=== PATIENT | male | born 1960 | race African-American/Black ===

== ENCOUNTER 2016-06-16 10:58 | Inpatient (IN) | payer OTHER ==
[~2016-06-16] VITALS: Ht 172.7 cm; Wt 105.6 kg
[2016-06-16] VITALS (18 sets, daily range): BP systolic 80–147; BP diastolic 56–104
[~2016-06-16 10:58] MED LIST: AMBIEN10 MG PO; AMBIEN5 MG PO; AMLODIPINE BESYL5 MG PO; BACTRIM,SEPT1 TABLET PO; CEPHALEXIN500 MG PO; DESCOVY 200-251 EACH PO; DOCUSATE SODIU100 MG PO; FEOSOL325 MG PO; FLEXERIL10 MG PO; KEFLEX500 MG PO; LEVAQUIN750 MG PO; METFORMIN HCL500 MG PO; MOTRIN800 MG PO; NAPROSYN500 MG PO; NORVIR100 M1 PO; PERCOCET 5/31 TABLET PO; PREDNISONE10 MG PO; PREDNISONE20 MG PO; PREZCOBIX 8001 EACH PO; PREZISTA800 MG PO; RISPERIDONE0.5 MG PO; SERTRALINE HCL100 MG PO; TORADOL10 MG PO; TRUVADA1 TABLET PO; UNABLEOBTAIN; VALIUM5 MG PO; VENTOLIN HFA18 GM IH; ZOLOFT100 MG PO
[2016-06-16 11:32] LABS: CREATININE 1.5 mg/dL (0.6-1.3); POTASSIUM 3.7 mEq/L (3.7-5.4)
[2016-06-16 11:34] LABS: HEMATOCRIT 38.6 % (38.0-50.0); MCH 25.4 PG (29.0-34.0); MCHC 30.8 G/DL (30.0-36.0); MCV 82.3 FL (86-99); MEAN PLAT.VOLUME 10.4 uM^3 (9.0-12.4); PLATELET COUNT 316 K/uL (156-360); RBC DIS.WIDTH-CV 14.6 % (11.8-14.6); RBC DIS.WIDTH-SD 43.2 % (39-53); RED BLOOD COUNT 4.69 M/uL (4.00-5.50); WHITE BLOOD COUNT 8.9 K/uL (4.1-10.2)
[2016-06-16 11:44] LABS: CHLORIDE 105 mEq/L (99-109); POTASSIUM 3.8 mEq/L (3.7-5.4); SODIUM 141 mEq/L (136-147)
[2016-06-16 11:47] LABS: GLUCOSE 294 mg/dL (70-99)
[2016-06-16 11:48] LABS: ANION GAP 18 MEQ/L (2-14)
[2016-06-16 11:49] LABS: TOTAL BILIRUBIN 0.2 mg/dL (0.0-1.0)
[2016-06-16 11:50] LABS: SERUM ETHYL ALCOHOL < 10 mg/dL
[2016-06-16 11:51] LABS: ALKALINE PHOSPHATASE 65 IU/L (3-129); GFR ESTIMATE (CALCULATED) 51 mL/min/
[2016-06-16 11:52] LABS: UREA NITROGEN (BUN) 16 mg/dL (9-23)
[2016-06-16 11:54] LABS: BASE EXCESS -1.7 mEq/L (-3 to +3); CARBOXY HGB 1.7 % (0-5); METHEMOGLOBIN 0.6 % (0-1.5)
[2016-06-16 11:54] LABS: SALICYLATE < 5.0 MG/DL (15-30); TROP-I INTERPRETATION NEGATIVE; TROPONIN-I 0.01 ng/mL (0.0-0.30)
[2016-06-16 11:55] LABS: DEVICE 840; FI02 100 %; MECHANICAL RATE 16 resp/min; MODE AC; PCO2 58 mm Hg (35-45); PO2 143 mm Hg (80-100); SITE LR; TOTAL RESP RATE 16 resp/min; pH 7.26 (7.35-7.45)
[2016-06-16 11:56] LABS: COMMENTS - BLOOD GASES A+C+; PEEP 5 CM/H20; TIDAL VOLUME 500 ML
[2016-06-16 12:57] LABS: AMPHETAMINE NEGATIVE (500 ng/mL); BARBITURATES NEGATIVE (200 ng/mL); BENZODIAZEPINES NEGATIVE (150 ng/mL); COCAINE PRESUMPTIVE POSITIVE (150 ng/mL); INTERNAL CONTROLS VALID? YES; METHADONE NEGATIVE (200 ng/mL); METHAMPHETAMINE NEGATIVE (500 ng/mL); OPIATES (MORPHINE) PRESUMPTIVE POSITIVE (100 ng/mL); OXYCODONE NEGATIVE (100 ng/mL); PHENCYCLIDINE NEGATIVE (25 ng/mL); PROPOXYPHENE NEGATIVE (300 ng/mL); THC CANNABINOIDS NEGATIVE (50 ng/mL); TRICYCLIC ANTIDEPRESSANTS NEGATIVE (300 ng/mL)
[2016-06-16 12:58] LABS: ADD MEDTOX COMMENT Y
[2016-06-16 17:48] LABS: METH RESISTANT S AUREUS PCR NEGATIVE (NEGATIVE)
[2016-06-16 17:53] LABS: PROBE CHECK PASS; SPECIMEN PROCESSING CONTROL PASS
[2016-06-16 19:07] LABS: MAGNESIUM 2.2 mg/dL (1.3-2.7)
[2016-06-16] MEDS ORDERED: PROAIR HFA8.5 GM IH (19:34)
[2016-06-16] MEDS ORDERED: DESCOVY 200-251 EACH PO (19:34)
[2016-06-16] MEDS ORDERED: PREZCOBIX 8001 EACH PO (19:34)
[2016-06-16] MEDS ORDERED: NORVASC5 MG PO (19:35)
[2016-06-16] MEDS ORDERED: GLUCOPHAGE500 MG PO (19:35)
[2016-06-16] MEDS ORDERED: MOTRIN800 MG PO (19:36)
[2016-06-16] MEDS ORDERED: FLEXERIL10 MG PO (19:36)
[2016-06-16 21:46] LABS: BASE EXCESS 0.8 mEq/L (-3 to +3); BICARBONATE 25.3 mEq/L (22-26); CARBOXY HGB 1.6 % (0-5); COMMENTS - BLOOD GASES C+A+; DEVICE VENTILATOR; FI02 40 %; MECHANICAL RATE 22 resp/min; METHEMOGLOBIN 1.7 % (0-1.5); MODE AC; PCO2 39 mm Hg (35-45); PO2 60 mm Hg (80-100); SITE RR; TOTAL RESP RATE 22 resp/min; pH 7.42 (7.35-7.45)
[2016-06-16 21:47] LABS: PEEP 5 CM/H20; TIDAL VOLUME 500 ML
[2016-06-17] VITALS (24 sets, daily range): BP systolic 78–151; BP diastolic 50–88
[2016-06-17 01:01] LABS: CREATINE KINASE 222 IU/L (1-294); TOTAL CK 222 IU/L (1-294)
[2016-06-17 01:08] LABS: CK-MB 1.8 ng/mL (0.0-4.9)
[2016-06-17 03:50] LABS: UR CREATININE CONCENTRATION 201.5 MG/DL
[2016-06-17 05:54] LABS: EOSINOPHIL (%) 0.1 % (0-5); HEMATOCRIT 33.1 % (38.0-50.0); IMMATURE GRANULOCYTE (%) 0.3 % (0.0-0.7); IMMATURE GRANULOCYTE COUNT 0.1 K/uL; LYMPHOCYTE COUNT 1.7 K/uL (1.0-2.8); MCH 25.6 PG (29.0-34.0); MCHC 30.8 G/DL (30.0-36.0); MEAN PLAT.VOLUME 10.8 uM^3 (9.0-12.4); MONOCYTE (%) 4.3 % (3-12); NEUTROPHIL (%) 87.6 % (45-76); NEUTROPHIL COUNT 19.5 K/uL (1.8-6.4); PLATELET COUNT 241 K/uL (156-360); RBC DIS.WIDTH-CV 14.9 % (11.8-14.6); RBC DIS.WIDTH-SD 45.5 % (39-53); RED BLOOD COUNT 3.99 M/uL (4.00-5.50)
[2016-06-17 05:55] LABS: WHITE BLOOD COUNT 22.3 K/uL (4.1-10.2)
[2016-06-17 06:22] LABS: ANION GAP 12 MEQ/L (2-14); CHLORIDE 105 MEQ/L (99-109); GFR ESTIMATE (CALCULATED) 40 mL/min/; MAGNESIUM 1.6 mg/dl (1.3-2.7); SAMPLE HEMOLYSIS CHECK 0; SAMPLE ICTERIC CHECK 0; SAMPLE LIPEMIA CHECK 0; SODIUM 140 MEQ/L (136-147); UREA NITROGEN (BUN) 20 mg/dL (9-23)
[2016-06-17 06:46] LABS: GLUCOSE 136 mg/dL (70-99)
[2016-06-17 07:33] LABS: CREATINE KINASE 160 IU/L (1-294); TOTAL CK 160 IU/L (1-294)
[2016-06-17 07:35] LABS: CK-MB 1.9 ng/mL (0.0-4.9)
[2016-06-17 13:04] LABS: CREATINE KINASE 235 IU/L (1-294); TOTAL CK 235 IU/L (1-294)
[2016-06-17 13:09] LABS: CK-MB 2.3 ng/mL (0.0-4.9)
[2016-06-17 18:12] LABS: POINT-OF-CARE METER ID UU14162636
[2016-06-17 18:42] LABS: CREATINE KINASE 362 IU/L (1-294); TOTAL CK 362 IU/L (1-294)
[2016-06-17 18:59] LABS: CK-MB 1.8 ng/mL (0.0-4.9)
[2016-06-18] VITALS (24 sets, daily range): BP systolic 87–157; BP diastolic 56–98
[2016-06-18 00:28] LABS: POINT-OF-CARE METER ID UU14174217
[2016-06-18 05:39] LABS: POINT-OF-CARE METER ID UU13113748
[2016-06-18 06:08] LABS: ANION GAP 10 MEQ/L (2-14); CHLORIDE 112 MEQ/L (99-109); GFR ESTIMATE (CALCULATED) 48 mL/min/; GLUCOSE 125 mg/dL (70-99); POTASSIUM 3.7 MEQ/L (3.7-5.4); SAMPLE HEMOLYSIS CHECK 0; SAMPLE ICTERIC CHECK 0; SAMPLE LIPEMIA CHECK 0; SODIUM 144 MEQ/L (136-147); UREA NITROGEN (BUN) 19 mg/dL (9-23)
[2016-06-18 06:10] LABS: MAGNESIUM 2.2 mg/dl (1.3-2.7)
[2016-06-18 06:15] LABS: EOSINOPHIL (%) 0.6 % (0-5); EOSINOPHIL COUNT 0.1 K/uL (0-0.3); HEMATOCRIT 29.6 % (38.0-50.0); IMMATURE GRANULOCYTE (%) 0.2 % (0.0-0.7); LYMPHOCYTE COUNT 1.5 K/uL (1.0-2.8); MCH 25.1 PG (29.0-34.0); MCHC 30.4 G/DL (30.0-36.0); MCV 82.5 FL (86-99); MEAN PLAT.VOLUME 10.3 uM^3 (9.0-12.4); MONOCYTE (%) 4.6 % (3-12); MONOCYTE COUNT 0.6 K/uL (0-0.8); NEUTROPHIL (%) 82.5 % (45-76); NEUTROPHIL COUNT 10.3 K/uL (1.8-6.4); PLATELET COUNT 207 K/uL (156-360); RBC DIS.WIDTH-CV 15.4 % (11.8-14.6); RBC DIS.WIDTH-SD 47.1 % (39-53); RED BLOOD COUNT 3.59 M/uL (4.00-5.50)
[2016-06-18 06:20] LABS: WHITE BLOOD COUNT 12.5 K/uL (4.1-10.2)
[2016-06-18 11:48] LABS: POINT-OF-CARE METER ID UU13113748
[2016-06-18 18:04] LABS: POINT-OF-CARE METER ID UU13113748
[2016-06-18 23:56] LABS: POINT-OF-CARE METER ID UU13113748
[2016-06-19] VITALS (10 sets, daily range): BP systolic 92–146; BP diastolic 59–94
[2016-06-19 05:28] LABS: EOSINOPHIL (%) 0 % (0-5); HEMATOCRIT 32.6 % (38.0-50.0); IMMATURE GRANULOCYTE (%) 0.3 % (0.0-0.7); IMMATURE GRANULOCYTE COUNT 0.1 K/uL; LYMPHOCYTE COUNT 0.9 K/uL (1.0-2.8); MCHC 31.3 G/DL (30.0-36.0); MEAN PLAT.VOLUME 10.7 uM^3 (9.0-12.4); MONOCYTE (%) 4.8 % (3-12); MONOCYTE COUNT 0.7 K/uL (0-0.8); NEUTROPHIL (%) 88.5 % (45-76); NEUTROPHIL COUNT 12.8 K/uL (1.8-6.4); PLATELET COUNT 210 K/uL (156-360); RBC DIS.WIDTH-CV 15.1 % (11.8-14.6); RBC DIS.WIDTH-SD 45.9 % (39-53); RED BLOOD COUNT 3.93 M/uL (4.00-5.50); WHITE BLOOD COUNT 14.5 K/uL (4.1-10.2)
[2016-06-19 05:59] LABS: ANION GAP 10 MEQ/L (2-14); CHLORIDE 104 MEQ/L (99-109); GFR ESTIMATE (CALCULATED) > 59 mL/min/; POTASSIUM 3.8 MEQ/L (3.7-5.4); SAMPLE HEMOLYSIS CHECK 0; SAMPLE ICTERIC CHECK 0; SAMPLE LIPEMIA CHECK 0; SODIUM 138 MEQ/L (136-147); UREA NITROGEN (BUN) 17 mg/dL (9-23)
[2016-06-19 06:03] LABS: GLUCOSE 213 mg/dL (70-99)
[2016-06-19 09:04] LABS: POINT-OF-CARE METER ID UU13113731
[2016-06-19 12:41] LABS: POINT-OF-CARE METER ID UU13113731
[2016-06-19 17:35] LABS: POINT-OF-CARE METER ID UU13113717
[2016-06-19 21:34] LABS: POINT-OF-CARE METER ID UU13113717
[2016-06-20 00:03] VITALS: BP 131/77
[2016-06-20 06:33] LABS: EOSINOPHIL (%) 0 % (0-5); HEMATOCRIT 30.3 % (38.0-50.0); IMMATURE GRANULOCYTE (%) 0.4 % (0.0-0.7); IMMATURE GRANULOCYTE COUNT 0.1 K/uL; LYMPHOCYTE COUNT 1.2 K/uL (1.0-2.8); MCH 25.4 PG (29.0-34.0); MCHC 30.7 G/DL (30.0-36.0); MCV 82.8 FL (86-99); MEAN PLAT.VOLUME 10.8 uM^3 (9.0-12.4); NEUTROPHIL COUNT 18.2 K/uL (1.8-6.4); PLATELET COUNT 229 K/uL (156-360); RBC DIS.WIDTH-SD 45.2 % (39-53); RED BLOOD COUNT 3.66 M/uL (4.00-5.50)
[2016-06-20 06:35] LABS: WHITE BLOOD COUNT 20.5 K/uL (4.1-10.2)
[2016-06-20 06:44] LABS: ANION GAP 8 MEQ/L (2-14); CHLORIDE 108 MEQ/L (99-109); GFR ESTIMATE (CALCULATED) 58 mL/min/; GLUCOSE 158 mg/dL (70-99); MAGNESIUM 1.8 mg/dl (1.3-2.7); POTASSIUM 4.4 MEQ/L (3.7-5.4); SAMPLE HEMOLYSIS CHECK 0; SAMPLE ICTERIC CHECK 0; SAMPLE LIPEMIA CHECK 0; SODIUM 141 MEQ/L (136-147)
[2016-06-20 06:48] LABS: UREA NITROGEN (BUN) 26 mg/dL (9-23)
[2016-06-20 08:49] VITALS: BP 129/72
[2016-06-20 11:14] LABS: POINT-OF-CARE METER ID UU13113717
[2016-06-20 15:37] VITALS: BP 129/79
[2016-06-20 23:58] VITALS: BP 130/82
[2016-06-21 06:38] LABS: POINT-OF-CARE METER ID UU13113725
[2016-06-21 08:09] LABS: EOSINOPHIL (%) 0.5 % (0-5); HEMATOCRIT 32.1 % (38.0-50.0); IMMATURE GRANULOCYTE (%) 0.2 % (0.0-0.7); LYMPHOCYTE COUNT 2.1 K/uL (1.0-2.8); MCH 25.5 PG (29.0-34.0); MCHC 30.5 G/DL (30.0-36.0); MCV 83.4 FL (86-99); MEAN PLAT.VOLUME 10.7 uM^3 (9.0-12.4); MONOCYTE (%) 9.4 % (3-12); MONOCYTE COUNT 0.8 K/uL (0-0.8); NEUTROPHIL (%) 64.6 % (45-76); NEUTROPHIL COUNT 5.4 K/uL (1.8-6.4); PLATELET COUNT 231 K/uL (156-360); RBC DIS.WIDTH-CV 15.5 % (11.8-14.6); RBC DIS.WIDTH-SD 47.1 % (39-53); RED BLOOD COUNT 3.85 M/uL (4.00-5.50); WHITE BLOOD COUNT 8.4 K/uL (4.1-10.2)
[2016-06-21 08:14] VITALS: BP 132/88
[2016-06-21 08:36] LABS: ANION GAP 9 MEQ/L (2-14); CHLORIDE 108 MEQ/L (99-109); GFR ESTIMATE (CALCULATED) > 59 mL/min/; GLUCOSE 108 mg/dL (70-99); MAGNESIUM 1.5 mg/dl (1.3-2.7); SAMPLE HEMOLYSIS CHECK 0; SAMPLE ICTERIC CHECK 0; SAMPLE LIPEMIA CHECK 0; SODIUM 142 MEQ/L (136-147); UREA NITROGEN (BUN) 19 mg/dL (9-23)
[2016-06-21 11:58] LABS: POINT-OF-CARE METER ID UU13113725
[2016-06-21 14:58] VITALS: BP 133/86
[2016-06-21 16:48] LABS: POINT-OF-CARE METER ID UU13113725
[2016-06-21 23:18] VITALS: BP 134/83
[2016-06-22 06:18] LABS: POINT-OF-CARE METER ID UU13113717
[2016-06-22 06:55] LABS: EOSINOPHIL (%) 1.8 % (0-5); EOSINOPHIL COUNT 0.1 K/uL (0-0.3); HEMATOCRIT 31.4 % (38.0-50.0); IMMATURE GRANULOCYTE (%) 0.1 % (0.0-0.7); LYMPHOCYTE COUNT 2.3 K/uL (1.0-2.8); MCH 25.7 PG (29.0-34.0); MCHC 31.2 G/DL (30.0-36.0); MCV 82.2 FL (86-99); MEAN PLAT.VOLUME 10.7 uM^3 (9.0-12.4); MONOCYTE (%) 7.6 % (3-12); MONOCYTE COUNT 0.6 K/uL (0-0.8); NEUTROPHIL (%) 59.1 % (45-76); NEUTROPHIL COUNT 4.4 K/uL (1.8-6.4); PLATELET COUNT 234 K/uL (156-360); RBC DIS.WIDTH-CV 15.4 % (11.8-14.6); RBC DIS.WIDTH-SD 45.9 % (39-53); RED BLOOD COUNT 3.82 M/uL (4.00-5.50); WHITE BLOOD COUNT 7.4 K/uL (4.1-10.2)
[2016-06-22 07:21] LABS: ANION GAP 9 MEQ/L (2-14); CHLORIDE 103 MEQ/L (99-109); GFR ESTIMATE (CALCULATED) > 59 mL/min/; GLUCOSE 138 mg/dL (70-99); MAGNESIUM 1.4 mg/dl (1.3-2.7); SAMPLE HEMOLYSIS CHECK 0; SAMPLE ICTERIC CHECK 0; SAMPLE LIPEMIA CHECK 0; SODIUM 139 MEQ/L (136-147); UREA NITROGEN (BUN) 18 mg/dL (9-23)
[2016-06-22 08:40] VITALS: BP 135/86
[2016-06-22 16:00] VITALS: BP 124/83
[2016-06-22 16:08] LABS: POINT-OF-CARE METER ID UU13113717
[2016-06-22 22:53] VITALS: BP 126/79
[2016-06-23 06:13] LABS: EOSINOPHIL (%) 0 % (0-5); HEMATOCRIT 32.5 % (38.0-50.0); IMMATURE GRANULOCYTE (%) 0.3 % (0.0-0.7); LYMPHOCYTE COUNT 1.6 K/uL (1.0-2.8); MCH 25.6 PG (29.0-34.0); MCHC 31.7 G/DL (30.0-36.0); MCV 80.8 FL (86-99); MEAN PLAT.VOLUME 10.7 uM^3 (9.0-12.4); MONOCYTE COUNT 0.7 K/uL (0-0.8); NEUTROPHIL (%) 79.8 % (45-76); NEUTROPHIL COUNT 9.4 K/uL (1.8-6.4); PLATELET COUNT 268 K/uL (156-360); RBC DIS.WIDTH-CV 14.9 % (11.8-14.6); RBC DIS.WIDTH-SD 44.1 % (39-53); RED BLOOD COUNT 4.02 M/uL (4.00-5.50); WHITE BLOOD COUNT 11.7 K/uL (4.1-10.2)
[2016-06-23 06:39] LABS: ANION GAP 11 MEQ/L (2-14); CHLORIDE 100 MEQ/L (99-109); GFR ESTIMATE (CALCULATED) > 59 mL/min/; GLUCOSE 206 mg/dL (70-99); MAGNESIUM 1.6 mg/dl (1.3-2.7); POTASSIUM 4.3 MEQ/L (3.7-5.4); SAMPLE HEMOLYSIS CHECK 0; SAMPLE ICTERIC CHECK 0; SAMPLE LIPEMIA CHECK 0; SODIUM 137 MEQ/L (136-147); UREA NITROGEN (BUN) 18 mg/dL (9-23)
[2016-06-23 08:45] VITALS: BP 129/89
[2016-06-23 12:07] LABS: POINT-OF-CARE METER ID UU13113717
[2016-06-23] MEDS ORDERED: AMOX TR-K CLV1 EAC4 PO (12:10)
[2016-06-23 16:36] LABS: POINT-OF-CARE METER ID UU13113725
[2016-06-23 21:39] LABS: POINT-OF-CARE METER ID UU13113717
[2016-06-23 22:54] VITALS: BP 171/85
[2016-06-24 06:20] LABS: EOSINOPHIL (%) 0.2 % (0-5); HEMATOCRIT 32.5 % (38.0-50.0); IMMATURE GRANULOCYTE (%) 0.3 % (0.0-0.7); LYMPHOCYTE COUNT 2.6 K/uL (1.0-2.8); MCH 25.3 PG (29.0-34.0); MCHC 31.1 G/DL (30.0-36.0); MCV 81.3 FL (86-99); MEAN PLAT.VOLUME 10.8 uM^3 (9.0-12.4); MONOCYTE (%) 7.5 % (3-12); NEUTROPHIL (%) 71.4 % (45-76); NEUTROPHIL COUNT 9.1 K/uL (1.8-6.4); PLATELET COUNT 293 K/uL (156-360); RBC DIS.WIDTH-SD 44.5 % (39-53); WHITE BLOOD COUNT 12.8 K/uL (4.1-10.2)
[2016-06-24 06:54] LABS: ANION GAP 8 MEQ/L (2-14); CHLORIDE 101 MEQ/L (99-109); GFR ESTIMATE (CALCULATED) > 59 mL/min/; MAGNESIUM 1.5 mg/dl (1.3-2.7); POTASSIUM 4.1 MEQ/L (3.7-5.4); SAMPLE HEMOLYSIS CHECK 0; SAMPLE ICTERIC CHECK 0; SAMPLE LIPEMIA CHECK 0; SODIUM 138 MEQ/L (136-147); UREA NITROGEN (BUN) 16 mg/dL (9-23)
[2016-06-24 06:57] LABS: GLUCOSE 109 mg/dL (70-99)
[2016-06-24 07:59] VITALS: BP 143/96
== END 2016-06-24 13:02 | disposition home or self-care (01) | DRG 917 ==
LOC: EME 10:58 → 4WEST 14:11 → EDOF 14:11 → 4WEST 15:44 → 5EAST 06-19 17:05
PROVIDERS: Emergency Medicine; Internal Medicine; Internal Medicine Critical Care Medicine; Internal Medicine Nephrology
PROC: 5A0945Z Assistance with Respiratory Ventilation, 24-96 Consecutive Hours (ICD-10-PCS; principal; 2016-06-16)
PROC: 05HM33Z Insertion of Infusion Device into Right Internal Jugular Vein, Percutaneous Approach (ICD-10-PCS; principal; 2016-06-16)
PROC: 0CHY7BZ Insertion of Airway into Mouth and Throat, Via Natural or Artificial Opening (ICD-10-PCS; principal; 2016-06-16)
DX: T40.1X1A Poisoning by heroin, accidental (unintentional), initial encounter (principal); J96.00 Acute respiratory failure, unspecified whether with hypoxia or hypercapnia; J69.0 Pneumonitis due to inhalation of food and vomit; G92 Toxic encephalopathy; B20 Human immunodeficiency virus [HIV] disease; N17.9 Acute kidney failure, unspecified; I50.30 Unspecified diastolic (congestive) heart failure; E87.2 Acidosis; T40.5X1A Poisoning by cocaine, accidental (unintentional), initial encounter; E87.6 Hypokalemia; F20.9 Schizophrenia, unspecified; I10 Essential (primary) hypertension; E66.01 Morbid (severe) obesity due to excess calories; E11.9 Type 2 diabetes mellitus without complications; J44.9 Chronic obstructive pulmonary disease, unspecified; B18.2 Chronic viral hepatitis C; Z68.35 Body mass index [BMI] 35.0-35.9, adult; Z86.73 Personal history of transient ischemic attack (TIA), and cerebral infarction without residual deficits
CPT/HCPCS: 36600; 70450; 70551; 71010; 80047; 80048; 80053; 82550; 82550 91; 82553; 82570; 82803; 82948; 83605; 83735; 84100; 84156; 84300; 84484; 84999; 85025; 85027; 87040; 87070; 87205; 87641; 94002; 94003; 94640; 94640 76; 94760; 94799; 99202; 99281; 99285; C9113; G0480; J1644; J1815; J1940; J2310; J2543; J2704; J2930; J3010; J3475; J7030; J7050; J7512

== ENCOUNTER 2016-08-27 23:25 | Observation (INO) | payer OTHER ==
[~2016-08-27] VITALS: Ht 162.6 cm; Wt 115.0 kg
[~2016-08-27 23:25] MED LIST changes: +AMOX TR-K CLV1 EAC4 PO; +GLUCOPHAGE500 MG PO; +NORVASC5 MG PO; +PROAIR HFA8.5 GM IH
[2016-08-27 23:53] LABS: HEMATOCRIT 34.8 % (38.0-50.0); MCH 22.5 PG (29.0-34.0); MCHC 29.3 G/DL (30.0-36.0); MCV 76.8 FL (86-99); MEAN PLAT.VOLUME 10.8 uM^3 (9.0-12.4); PLATELET COUNT 319 K/uL (156-360); RBC DIS.WIDTH-CV 14.4 % (11.8-14.6); RBC DIS.WIDTH-SD 40.4 % (39-53); RED BLOOD COUNT 4.53 M/uL (4.00-5.50); WHITE BLOOD COUNT 6.3 K/uL (4.1-10.2)
[2016-08-28] LABS: CHLORIDE 103 mEq/L (99-109); POTASSIUM 3.7 mEq/L (3.7-5.4); SODIUM 138 mEq/L (136-147)
[2016-08-28 00:02] LABS: GLUCOSE 214 mg/dL (70-99)
[2016-08-28 00:03] LABS: ANION GAP 12 MEQ/L (2-14)
[2016-08-28 00:06] LABS: GFR ESTIMATE (CALCULATED) > 59 mL/min/
[2016-08-28 00:07] LABS: UREA NITROGEN (BUN) 15 mg/dL (9-23)
[2016-08-28 00:13] LABS: TROP-I INTERPRETATION NEGATIVE; TROPONIN-I 0.02 ng/mL (0.0-0.30)
[2016-08-28 01:45] LABS: D-DIMER ELISA 0.69 mg/L FEU (< 0.57)
[2016-08-28 01:46] LABS: TOTAL BILIRUBIN 0.3 mg/dL (0.0-1.0)
[2016-08-28 01:47] LABS: ALKALINE PHOSPHATASE 77 IU/L (3-129)
[2016-08-28 01:50] LABS: DIRECT BILIRUBIN 0.2 mg/dL (0.0-0.3)
[2016-08-28 01:51] LABS: LIPASE 27 U/L (1.0-51.0)
[2016-08-28 04:38] LABS: ADD MIUA? NO; BILIRUBIN NEGATIVE; BLOOD NEGATIVE; COLOR YELLOW ((YELLOW)); GLUCOSE (STRIP) NEGATIVE; KETONES NEGATIVE; LEUKOCYTES NEGATIVE; NITRITE NEGATIVE; PROTEIN (STRIP) NEGATIVE; UROBILINOGEN 0.2 MG/DL (0.2-1.0)
[2016-08-28 04:56] LABS: SPECIFIC GRAVITY 1.081 (1.000-1.030)
[2016-08-28 05:07] LABS: AMPHETAMINES QUANT VALUE 0 NG/ML; BARBITUATES QUANT VALUE 0 NG/ML; BENZODIAZEPINES QUANT VALUE 0 NG/ML; BENZODIAZEPINES, URINE SCREEN Negative (200 ng/mL); MARIJUANA QUANT VALUE 0 NG/ML; PHENCYCLIDINE QUANT VALUE 0 NG/ML
[2016-08-28 05:37] VITALS: BP 143/93
[2016-08-28] MEDS ORDERED: METFORMIN HCL500 MG PO (06:20)
[2016-08-28] MEDS ORDERED: NORVASC5 MG PO (06:22)
[2016-08-28] MEDS ORDERED: PREZCOBIX 8001 EACH PO (06:26)
[2016-08-28] MEDS ORDERED: DESCOVY 200-251 EACH PO (06:28)
[2016-08-28 06:42] LABS: TROP-I INTERPRETATION NEGATIVE; TROPONIN-I 0.02 ng/mL (0.0-0.30)
[2016-08-28 07:00] VITALS: BP 120/76
[2016-08-28 10:54] VITALS: BP 126/74
[2016-08-28] MEDS ORDERED: LISINOPRIL2.5 MG PO (11:39)
[2016-08-28] MEDS ORDERED: LO-DOSE ASPIRIN81 M2 PO (11:39)
[2016-08-28 12:19] LABS: TROP-I INTERPRETATION NEGATIVE; TROPONIN-I 0.02 ng/mL (0.0-0.30)
== END 2016-08-28 13:02 | disposition home or self-care (01) ==
LOC: EME 23:25 → EDOF 08-28 04:00 → 5WEST 08-28 05:23
PROVIDERS: Physician Assistant
DX: R07.89 Other chest pain (principal); I10 Essential (primary) hypertension; E11.9 Type 2 diabetes mellitus without complications; F14.10 Cocaine abuse, uncomplicated; B20 Human immunodeficiency virus [HIV] disease; E66.9 Obesity, unspecified; Z68.43 Body mass index [BMI] 50.0-59.9, adult
CPT/HCPCS: 71020; 71275; 76705; 80048; 80076; 80306 90; 81003; 83690; 83880; 84484; 85027; 85379; 93005; 94640; 99281; 99285; G0378; J1650; J1885; J7030

== ENCOUNTER 2016-11-01 03:44 | Observation (INO) | payer OTHER ==
[~2016-11-01] VITALS: Ht 162.6 cm; Wt 75.0 kg
[~2016-11-01 03:44] MED LIST changes: +LISINOPRIL2.5 MG PO; +LO-DOSE ASPIRIN81 M2 PO
[2016-11-01 04:56] LABS: HEMATOCRIT 36.7 % (38.0-50.0); MCH 23.4 PG (29.0-34.0); MCHC 29.2 G/DL (30.0-36.0); MCV 80.1 FL (86-99); MEAN PLAT.VOLUME 10.5 uM^3 (9.0-12.4); PLATELET COUNT 283 K/uL (156-360); RBC DIS.WIDTH-CV 20.8 % (11.8-14.6); RBC DIS.WIDTH-SD 58.8 % (39-53); RED BLOOD COUNT 4.58 M/uL (4.00-5.50); WHITE BLOOD COUNT 5.6 K/uL (4.1-10.2)
[2016-11-01 05:25] LABS: CHLORIDE 107 mEq/L (99-109); POTASSIUM 4.3 mEq/L (3.7-5.4); SODIUM 140 mEq/L (136-147)
[2016-11-01 05:27] LABS: GLUCOSE 124 mg/dL (70-99)
[2016-11-01 05:29] LABS: ANION GAP 9 MEQ/L (2-14)
[2016-11-01 05:31] LABS: GFR ESTIMATE (CALCULATED) > 59 mL/min/
[2016-11-01 05:32] LABS: UREA NITROGEN (BUN) 11 mg/dL (9-23)
[2016-11-01 05:42] LABS: TROP-I INTERPRETATION NEGATIVE; TROPONIN-I 0.02 ng/mL (0.0-0.30)
[2016-11-01 09:30] VITALS: BP 132/98
[2016-11-01 09:32] VITALS: BP 165/101
[2016-11-01 10:42] LABS: POINT-OF-CARE METER ID UU13113700
[2016-11-01 11:08] LABS: TROP-I INTERPRETATION NEGATIVE; TROPONIN-I 0.02 ng/mL (0.0-0.30)
[2016-11-01 11:39] VITALS: BP 185/78
[2016-11-01 12:28] LABS: POINT-OF-CARE METER ID UU13113700
[2016-11-01] MEDS ORDERED: VENTOLIN HFA18 GM IH (13:14)
[2016-11-01] MEDS ORDERED: IRON325 MG PO (13:19)
[2016-11-01 14:26] LABS: D-DIMER ELISA 0.89 mg/L FEU (< 0.57)
[2016-11-01 15:38] VITALS: BP 139/85
[2016-11-01 17:11] LABS: POINT-OF-CARE METER ID UU13113831
[2016-11-01 17:43] LABS: POINT-OF-CARE METER ID UU14162513
[2016-11-01 18:17] LABS: TROP-I INTERPRETATION NEGATIVE; TROPONIN-I 0.01 ng/mL (0.0-0.30)
[2016-11-01 20:00] VITALS: BP 151/78
[2016-11-01 23:33] VITALS: BP 130/77
[2016-11-02 04:00] VITALS: BP 117/71
[2016-11-02 07:52] LABS: ANION GAP 14 MEQ/L (2-14); CHLORIDE 98 MEQ/L (99-109); GFR ESTIMATE (CALCULATED) > 59 mL/min/; GLUCOSE 195 mg/dL (70-99); POTASSIUM 4.9 MEQ/L (3.7-5.4); SAMPLE HEMOLYSIS CHECK 0; SAMPLE ICTERIC CHECK 0; SAMPLE LIPEMIA CHECK 0; SODIUM 135 MEQ/L (136-147); UREA NITROGEN (BUN) 22 mg/dL (9-23)
[2016-11-02 08:09] LABS: HEMATOCRIT 37.8 % (38.0-50.0); MCHC 29.1 G/DL (30.0-36.0); MCV 79.1 FL (86-99); MEAN PLAT.VOLUME 10.4 uM^3 (9.0-12.4); PLATELET COUNT 303 K/uL (156-360); RBC DIS.WIDTH-CV 20.7 % (11.8-14.6); RBC DIS.WIDTH-SD 58.4 % (39-53); RED BLOOD COUNT 4.78 M/uL (4.00-5.50)
[2016-11-02 08:11] LABS: WHITE BLOOD COUNT 10.9 K/uL (4.1-10.2)
[2016-11-02 08:25] VITALS: BP 124/81
[2016-11-02] MEDS ORDERED: LISINOPRIL10 MG PO (09:17)
[2016-11-02] MEDS ORDERED: DOXYCYCLINE HY100 M3 PO (09:17)
[2016-11-02] MEDS ORDERED: ADVAIR HFA120 INHALA IH (09:17)
[2016-11-02] MEDS ORDERED: PREDNISONE20 MG PO (09:22)
[2016-11-02] MEDS ORDERED: BENZONATATE200 MG PO (09:23)
== END 2016-11-02 10:38 | disposition home or self-care (01) ==
LOC: EME 03:44 → EDOF 07:54 → 5WEST 09:10
PROVIDERS: Emergency Medicine; Nurse Practitioner Adult Health; Student in an Organized Health Care Education/Training Program
DX: J44.1 Chronic obstructive pulmonary disease with (acute) exacerbation (principal); R07.89 Other chest pain; I11.0 Hypertensive heart disease with heart failure; I50.23 Acute on chronic systolic (congestive) heart failure; I42.9 Cardiomyopathy, unspecified; E11.9 Type 2 diabetes mellitus without complications; B20 Human immunodeficiency virus [HIV] disease
CPT/HCPCS: 71020; 80048; 82948; 83605; 83880; 84484; 85027; 85379; 93005; 94640; 94640 76; 99202; 99281; 99285; G0378; J1644; J1815; J1940; J2920; J7512

== ENCOUNTER 2017-08-31 08:34 | Day surgery (SDC) | payer OTHER ==
[~2017-08-31] VITALS: Ht 162.6 cm; Wt 113.0 kg
[~2017-08-31 08:34] MED LIST changes: +ADVAIR HFA120 INHALA IH; +ATORVASTATIN CA20 MG PO; +BENZONATATE200 MG PO; +CARVEDILOL6.25 MG PO; +DOXYCYCLINE HY100 M3 PO; +FUROSEMIDE20 MG PO; +IRON325 MG PO; +LISINOPRIL10 MG PO; +LISINOPRIL5 MG PO; +QVAR 80 MCG IN7.3 GM IH
[2017-08-31 09:42] LABS: HEMATOCRIT 43.4 % (38.0-50.0); HEMOGLOBIN 13.8 G/DL (12.5-16.6); MCH 29.4 PG (29.0-34.0); MCHC 31.8 G/DL (30.0-36.0); MCV 92.5 FL (86-99); PLATELET COUNT 182 K/uL (156-360); RBC DIS.WIDTH-CV 13.2 % (11.8-14.6); RBC DIS.WIDTH-SD 44.8 % (39-53); RED BLOOD COUNT 4.69 M/uL (4.00-5.50); WHITE BLOOD COUNT 5.2 K/uL (4.1-10.2)
[2017-08-31 10:05] LABS: CHLORIDE 102 MEQ/L (99-109); GFR ESTIMATE (CALCULATED) > 59 mL/min/ (58.99-99999); GLUCOSE 128 mg/dL (70-99); POTASSIUM 4.4 MEQ/L (3.7-5.4); SODIUM 141 MEQ/L (136-147); UREA NITROGEN (BUN) 18 mg/dL (9-23)
== END 2017-08-31 16:30 | disposition home or self-care (01) ==
LOC: CATH 08:34
PROVIDERS: Internal Medicine Cardiovascular Disease
DX: R94.39 Abnormal result of other cardiovascular function study (principal); I27.20 Pulmonary hypertension, unspecified; I11.0 Hypertensive heart disease with heart failure; I50.22 Chronic systolic (congestive) heart failure; I42.9 Cardiomyopathy, unspecified; Z86.19 Personal history of other infectious and parasitic diseases; B20 Human immunodeficiency virus [HIV] disease; F10.11 Alcohol abuse, in remission; F55.8 Abuse of other non-psychoactive substances; R06.83 Snoring; Z86.73 Personal history of transient ischemic attack (TIA), and cerebral infarction without residual deficits; F39 Unspecified mood [affective] disorder; F19.11 Other psychoactive substance abuse, in remission; E66.9 Obesity, unspecified; Z68.41 Body mass index [BMI] 40.0-44.9, adult; R73.01 Impaired fasting glucose; Z87.891 Personal history of nicotine dependence; Z79.84 Long term (current) use of oral hypoglycemic drugs
CPT/HCPCS: 80048; 82948; 85027; 93005; C1760; C1769; C1887; C1894; J1644; J2250; J7040